=== PATIENT | female | born 1955 | race Caucasian/White ===

== ENCOUNTER → 2024-09-14 08:48 | Outpatient (REF) | payer OTHER, SELFPAY | LOC: RAD 08:48 | PROVIDERS: ATTENDING PHYSICIAN Internal Medicine Cardiovascular Disease; FAMILY PHYSICIAN Family Medicine | DX: R94.39 Abnormal result of other cardiovascular function study (principal) | CPT/HCPCS: 75574; Q9967 ==

== ENCOUNTER 2024-09-28 09:02 | Day surgery (SDC) | payer OTHER, SELFPAY ==
[2024-09-23 13:27] VITALS: BMI 27.2
[2024-09-23 13:50] LABS: Hematocrit 39.0 % (37.0-47.0); Hemoglobin 13.0 g/dL (12.0-16.0); Mean Corp Hgb Conc. 33.3 g/dL (33.0-37.0); Mean Corpuscular Volume 90.7 fL (81.0-99.0); Nucleated Red Blood Cells % 0 %; Platelet Count 295 10^3/uL (130-400); Red Cell Dist. Width 13.7 % (11.5-14.5)
[2024-09-23 14:06] LABS: ALT (SGPT) 14 U/L (0-35); AST (SGOT) 23 U/L (14-36); Albumin 4.7 g/dl (3.5-5.0); Alkaline Phosphatase 50 U/L (38-126); Blood Urea Nitrogen 17 mg/dl (7-17); Calcium 10.9 mg/dl (8.4-10.2); Carbon Dioxide 29 mmol/L (22-30); Chloride 107 mmol/L (98-107); Estimated Creatinine Clearance 80 ml/min; Glucose 202 mg/dl (70-99); Potassium 4.2 mmol/L (3.5-5.1); Sodium 143 mmol/L (135-145); Total Protein 7.0 g/dl (6.3-8.2); eGFR > 60.00
[2024-09-28] VITALS (8 sets, daily range): BP systolic 136–183; BP diastolic 55–102; BMI 27.1
[2024-09-28 10:38] LABS: Glucose - Point of Care 109 mg/dl (70-99)
[2024-09-28] MEDS: NSS 201 ML IV (11:40)
[2024-09-28 13:06] LABS: Glucose - Point of Care 99 mg/dl (70-99)
[2024-09-28] MEDS: NSS 1000 IV (13:16)
--- NOTE | 2024-09-28 13:44 | ITS.CL.PN ---
Success Coach - Procedure Note
Procedure
Procedure Note:
CARDIAC CATHETERIZATION REPORT
Date of Procedure: 09/28/2024
Referring: Dr. Bony Turcios MD
Indication: significant left main and LAD disease on CT coronary angiography
PROCEDURE(S)
1. left heart catheterization
2. coronary angiography
ACCESS: 6F right radial artery (closure: radial band)
CATHETERS
1. 6F JR4
2. 6F JL3.5
MODERATE SEDATION: 30 minutes of moderate sedation was utilized. An independent certified medical dosimetrist was present to assist with and help manage the patient's level of consciousness and physiologic status.
HEMODYNAMIC DATA
LV 143/5 (EDP 11) mmHg
AO 143/81 (mean 102) mmHg
CORONARY ANGIOGRAPHY
Dominance: right
LM: large vessel with mild distal vessel tapering trifurcating into the LAD, LCx, and raums.
LAD: large vessel giving rise to a moderate caliber D1, small D2, and small D3. There is a focal, severe 80% ostial stenosis, mild-moderate diffuse disease in the proximal vessel, and luminal irregularities only in the mid-distal vessel and
diagonals.
Ramus: moderate caliber high rising vessel suppling the high lateral wall. There appears to be focal severe ~80% ostial stenosis best seen on the PETERSON and AP caudal projections.
LCx: large vessel giving rise to a small OM1, small OM2, and large LPL branch. There are trivial luminal irregularities only.
RCA: large vessel giving rise to a moderate caliber RPDA and two small RPL branches. There are mild luminal irregularities only.
RADIATION: dose 345 mGy; DAP 25 Gy*cm2; fluoroscopy time 4.2 min
CONCLUSIONS
1. Two vessel obstructive coronary artery disease with 80% stenosis of the ostial LAD and ostial ramus.
2. Normal LV filling pressure and no aortic stenosis.
RECOMMENDATIONS
1. Aggressive secondary prevention of coronary artery disease with high intensity statin and asprin 81mg daily.
2. Given the patient's lack of symptoms and two vessel disease with normal EF, an initial strategy of medical therapy is preferable. Should the patient develop progressive disease and/or symptoms, revascularization could be considered. Percutaneous
revascularization would be challenging giving the LM trifurcation and ostial disease in the LAD and ramus. Surgical revascularization of the LAD, ramus +/- D1 would be technically feasible and offer complete revascularization. The patient will
arrange to meet with surgery as an outpatient to discuss revascularization options should this be required in the future.
Copy to: Dr. Bony Turcios MD (bingo clerk); Dr. Benitez Shaver DO (PCP)
Signed: Darnell Reyna MD, PhD
== END 2024-09-28 15:30 | disposition home or self-care (01) ==
LOC: CATH 09:02
PROVIDERS: ATTENDING PHYSICIAN Student in an Organized Health Care Education/Training Program; FAMILY PHYSICIAN Family Medicine; OTHER PHYSICIAN Internal Medicine Cardiovascular Disease
DX: I25.10 Atherosclerotic heart disease of native coronary artery without angina pectoris (principal); E11.9 Type 2 diabetes mellitus without complications; Z79.85 Long-term (current) use of injectable non-insulin antidiabetic drugs; Z68.27 Body mass index [BMI] 27.0-27.9, adult; I10 Essential (primary) hypertension; E78.5 Hyperlipidemia, unspecified; M19.90 Unspecified osteoarthritis, unspecified site; R91.1 Solitary pulmonary nodule; Z92.21 Personal history of antineoplastic chemotherapy; Z85.3 Personal history of malignant neoplasm of breast; Z85.818 Personal history of malignant neoplasm of other sites of lip, oral cavity, and pharynx; E03.9 Hypothyroidism, unspecified; F41.9 Anxiety disorder, unspecified; F32.A Depression, unspecified; Z79.82 Long term (current) use of aspirin; Z79.899 Other long term (current) drug therapy; Z79.890 Hormone replacement therapy
CPT/HCPCS: 99152; 99153; 36415; 80053; 82962; 85025; 93005; 93458; C1894; Q9967